=== PATIENT | male | born 1965 | race Caucasian/White ===

== ENCOUNTER → 2023-10-07 16:14 | Outpatient (REF) | payer BC, SELFPAY | LOC: HWRAD 16:14 | PROVIDERS: ATTENDING PHYSICIAN Family Medicine | DX: R05.3 Chronic cough (principal); R06.2 Wheezing | CPT/HCPCS: 71046 ==

== ENCOUNTER 2024-06-05 14:00 | Inpatient (IN) | payer BC, SELFPAY ==
[2024-06-05] VITALS (11 sets, daily range): BP systolic 98–160; BP diastolic 64–89; BMI 34.3; BMI 33.6
[2024-06-05] MEDS: NSS 1000 IV ×2 (11:36→16:20)
[2024-06-05] MEDS: ZOFRAN 4 MG IV ×3 (11:39→21:04)
--- NOTE | 2024-06-05 11:40 | ED.GENMED ---
History of Present Illness
General
Chief Complaint: Abdominal Pain
Source: patient
Exam Limitations: none
Time Seen by Provider: 06/05/24 11:21
History of Present Illness
History of Present Illness:
58yoM with a history of hypertension, hyperlipidemia, GERD, and obesity presenting via EMS for evaluation of abdominal pain. Symptoms initially woke him up from sleep at 3am. He thought he may be hungry so went to get [employer] before work. He
states 'everything went down hill from there.' He reports central abdominal pain that is describes as cramping. Pain comes in waves and is currently a 3/10 in severity. Pain is an 8/10 at its worst. He also reports lightheadedness. He is also having
nausea and was dry heaving in triage. He reportedly had a syncopal episode while dry heaving in triage. He denies any chest pain, shortness of breath, dysuria, constipation, diarrhea, fevers. Previous abdominal surgeries include an umbilical hernia
repair and prostatectomy.
Phy Exam
Physical Exam
Physical Exam:
Appears uncomfortable, non-toxic
General Physical Exam
General age: appears stated age
General Skin: warm and dry
General Habitus: normal
General Mental: alert
ENT Exam
ENT Exam: normocephalic
Cardiovascular Exam
Cardiovascular Exam: regular rate/rhythm and no murmur
Pulmonary Exam
Pulmonary Exam: lungs clear, no respiratory distress, no rales, no crackles, no rhonchi and no wheezing
Gastrointestinal Exam
Gastrointestinal Exam: soft, distended, rebound, tender and other (Abdomen distended with generalized tenderness. +Rebound.)
Neurological Exam
Neurological Exam: alert
Pablo Coma Scale
Eye Opening: Spontaneous
Verbal Response: Oriented
Motor Response: Obeys Commands
GCS Total Score: 15
Skin Exam
Skin Exam: normal color and warm/dry
Psychiatric Exam
Psychiatric Exam: normal mood/affect
Course
Orders/Labs/Results
Orders:
Orders
06/05/24 11:31
Electrocardiogram (*1) Urgent
Reason for Study: Abdominal Pain
Cardiac Monitoring- Treatment ONCE
EKG- Treatment ONCE
0.9% Sodium Chloride 1000 ml [Nss] 1,000 ml IV BOLUS
Ondansetron Injectable [Zofran] 4 mg IV NOW STA
06/05/24 11:32
CT Abd/pelvis W Iv Cont Urgent
Comment:
Reason For Exam: Generalized abd pain
06/05/24 11:36
Complete Blood Count/With Diff Urgent
Comprehensive Metabolic Panel Urgent
Lactate Level [Lactic Acid] Urgent
Lipase Urgent
Troponin I Urgent
06/05/24 13:06
Consult Surgery [SURGICAL CONSULT] Urgent
Consulting Provider: Aquilino Cornejo
Was physician already notified: Yes
NG Tube [GI tube insertion- Treatment] ONCE
06/05/24 13:23
Admit/Transfer Patient As Directed
Co-Sign Provider:
Level of Care: Inpatient admission
Assign to:: Medical/Surgical
Physician / Group: swathi simeon
Diagnosis: small bowel obstruction
Reason for Hospitalization: small bowel obstruction
Expected length of stay greater than two midnights?: Yes
ELOS- Estimated Length of Stay in days: 3
I certify the patient meets the requirements for IP care: Yes
06/05/24 13:24
Code Status As Directed
Resuscitation Status: Full Code
PRN Pain Medication Management As Directed
May give lesser potent ordered pain med per pt: Yes
preference::
Protocol:: Medication orders for pain may be administered in a
manner that supports deferring to patient preference
when the pt is:
- Requesting an ordered lesser potent pain medication.
Least to most potent pain medications are defined
as: acetaminophen < NSAID < tramadol < opioids
(morphine, oxycodone, hydromorphone).
- Requesting a lesser dose of the same medication IF
ORDERED.
- Requesting a less intrusive route of administration
if both routes are prescribed by the provider (PO <
IV).
06/05/24 13:45
Urinalysis Reflex To Culture Routine
06/05/24 13:46
Gastrointestinal Tubes As Directed
Type: [place] sump
To suction?: Yes
Type of suction: Low intermittent
Directions to clamp NG tube: clamp for ambulation <30min
Irrigate tube?: Yes
Irrigant: Tap Water
Frequency: Q4H
Amount in mls: 30
Irrigation Directions: Irrigate Q4H and PRN
Comment: 16fr [place] sump
06/06/24 06:00
CR Abdomen - 1 View IN AM
Comment:
Reason For Exam: f/u CT, SBO with n/abd pain
Abnormal Lab Results
06/05/24
11:36
WBC 19.6 H 10^3/uL
(4.8-10.8)
Abs Immat Gran (auto) 0.1 H 10^3/uL
(0-0.05)
Absolute Neuts (auto) 16.9 H 10^3/uL
(1.4-6.5)
Absolute Monos (auto) 1.2 H 10^3/uL
(0.1-0.6)
Immature Gran % 0.6 H %
(0-0.5)
Neutrophils % 86.0 H %
(42.2-75.2)
Lymphocytes % 6.6 L %
(20.5-51.1)
Chloride 97 L mmol/L
(98-107)
Glucose 151 H mg/dl
(70-99)
Calcium 10.6 H mg/dl
(8.4-10.2)
Total Protein 8.3 H g/dl
(6.3-8.2)
Albumin 5.3 H g/dl
(3.5-5.0)
06/05/24 11:36
06/05/24 11:36
Vital Signs
Initial and Last Documented VS:
Initial Vital Signs
Temp Pulse Resp Pulse Ox
98.0 F 77 18 96
06/05/24 11:14 06/05/24 11:14 06/05/24 11:14 06/05/24 11:14
Last Documented Vital Signs
Temp Pulse Resp BP Pulse Ox
98.0 F 83 33 120/68 95
06/05/24 11:14 06/05/24 12:00 06/05/24 12:00 06/05/24 12:00 06/05/24 12:00
MDM/Problems Addressed
Differential Diagnosis Includes:
58yoM here with abd pain that started at 3am this morning. +Nausea, dry heaving. Syncopal episode in triage after dry heaving. VSS. He appears uncomfortable but is non-toxic. Abdomen is distended with rebound tenderness. Differential diagnosis
includes but is not limited to: gastroenteritis, appendicitis, diverticulitis, SBO, perforated viscous
Initial ED plan: Check abdominal labs, lactate, troponin/EKG, and CT abdomen. IV Zofran and fluid bolus for symptoms.
*EKG
Interpreted by ED Provider?: Yes
EKG Intrepretation Date: 06/05/24
Heart Rate: 80
Rate: normal
Rhythm: sinus
[place]: normal axis
Interval: normal interval
QRS Pattern: normal QRS
Ischemia: no ischemia
*Critical Care Note
Total Time (30-74mins, 75-104mins- exclusive of procedures): Not Applicable
Update Note
Update Note:
CT shows a distal small bowel obstruction with transition point in the right lower quadrant. Leukocytosis noted with a white count of 19 which is likely reactive. Lactate within normal limits. EKG shows normal sinus rhythm without ischemic
changes and troponin normal. Case was discussed with general surgery who recommends NG tube and hospitalist admission. Patient admitted for further management.
ED Attending Note
-
Portions of this chart may have been created with voice recognition software.� Occasional wrong word or��sound alike� substitutions may have occurred due to the inherent limitations of voice recognition software.
Discharge Plan
Departure
Patient Disposition: Admit
Date of Disposition: 06/05/24
Time of Disposition: 13:15
Presentation/result/management discussed w/ accepting MD/DO: Hospitalist
Discharge Problem:
Small bowel obstruction
Interventions
Interventions:
*Risk Screen - Suicide Last Done: 06/05/24 11:14
*General Assessment Last Done: 06/05/24 11:14
*Neglect/Abuse Screening Last Done: 06/05/24 11:14
ML-Qlurcz-Oqzzbrdext Assessment Last Done: 06/05/24 12:06
[2024-06-05 11:49] LABS: % Basophils 0.3 % (0-2); % Eosinophils 0.2 % (0-6); % Immature Granulocytes 0.6 % (0-0.5); % Lymphocytes 6.6 % (20.5-51.1); % Monocytes 6.3 % (1.7-9.3); Absolute Basophils 0.1 10^3/uL (0-0.2); Absolute Immature Granulocytes 0.1 10^3/uL (0-0.05); Absolute Lymphocytes 1.3 10^3/uL (1.2-3.4); Absolute Monocytes 1.2 10^3/uL (0.1-0.6); Absolute Neutrophils 16.9 10^3/uL (1.4-6.5); Hematocrit 45.7 % (39.0-52.0); Hemoglobin 15.9 g/dL (13.0-18.0); Mean Corp Hgb Conc. 34.8 g/dL (33.0-37.0); Mean Corpuscular Hgb 30.3 pg (27.0-31.0); Mean Corpuscular Volume 87.2 fL (80.0-94.0); Mean Platelet Volume 9.1 fL (7.4-10.4); Nucleated Red Blood Cells % 0 % (-); Platelet Count 357 10^3/uL (130-400); Red Blood Cell Count 5.24 10^6/uL (4.70-6.10); Red Cell Dist. Width 12.2 % (11.5-14.5); White Blood Cell Count 19.6 10^3/uL (4.8-10.8)
[2024-06-05 11:58] LABS: ALT (SGPT) 28 U/L (0-50); AST (SGOT) 28 U/L (17-59); Albumin 5.3 g/dl (3.5-5.0); Alkaline Phosphatase 53 U/L (38-126); Blood Urea Nitrogen 19 mg/dl (9-20); Calcium 10.6 mg/dl (8.4-10.2); Carbon Dioxide 27 mmol/L (22-30); Chloride 97 mmol/L (98-107); Estimated Creatinine Clearance 96 ml/min; Glucose 151 mg/dl (70-99); Lipase 45 U/L (23-300); Potassium 4.7 mmol/L (3.5-5.1); Sodium 135 mmol/L (135-145); Total Bilirubin 0.6 mg/dl (0.2-1.3); Total Protein 8.3 g/dl (6.3-8.2); eGFR > 60.00
[2024-06-05 12:00] LABS: Lactic Acid 1.7 mmol/L (0.7-2.0)
[2024-06-05 12:09] LABS: Troponin I < 0.012 ng/ml
--- NOTE | 2024-06-05 13:19 | HPS.HSE ---
Family Physician
-
Family Physician: Alexandrea Gallardo
Chief Complaint
-
Abdominal pain
History of Present Illness
58yoM with a history of hypertension, hyperlipidemia, GERD, and obesity presenting via EMS for evaluation of abdominal pain. He has been having this pain for past 6 months intermittently. It subsided by itself by taking rest. symptoms initially
woke him up from sleep at 3am. Patient ate a apple at bedtime, since then he noticed worsening abdominal pain associate with nausea vomiting. Patient had BM as today and he had a small BM today. Patient was very clammy and almost passed out due
to the pain. patient denied any headache, dizziness or syncope. Patient denied fever, chills, chest pain, short of breath. Patient denied dysuria,hematuria.
Medical History
Past Medical History
Past Medical History: Reports Other
Additional Past Medical History:
Left lumbar radiculopathy
Asthma
Prostate cancer
Hyperlipidemia
Alcoholism
Hepatitis C
Past Surgical History: Reports Other
Additional Past Surgical History:
Prostatectomy
Right shoulder surgery
Umbilical hernia repair
Social History
Tobacco: Former Smoker
Alcohol: None
Drug: None
Personal:
Living: With Family
Employment: Employed
Family History
Family History: Not pertinent
Allergies / Home Medications
Allergies reflects when Allergies were last updated in [employer].
Home Medications with original date entered in [employer]
Allergy/Medication List:
Allergies
Allergy/AdvReac Type Severity Reaction Status Date / Time
No Known Allergies Allergy Verified 06/05/24 11:14
Home Medications
ibuprofen 200 mg tablet (Advil) 600 mg PO PRN PRN pain 01/19/14
naproxen sodium 220 mg tablet (Aleve) 660 mg PO PRN PRN pain 01/19/14
cephalexin 500 mg capsule 500 mg PO DAILY #14 caps 02/01/14
oxycodone-acetaminophen 5 mg-325 mg tablet 1 ea PO Q4HPRN PRN pain #30 tabs 02/01/14
Review of Systems
-
Constitutional: Reports No Symptoms
EENT: Reports No Symptoms
Respiratory: Reports No Symptoms
Cardiac: Reports No Symptoms
Abdomen/GI: Reports Abdominal Pain and Nausea
: Reports No Symptoms
Musculoskeletal: Reports No Symptoms
Skin: Reports No Symptoms
Neurological: Reports No Symptoms
Endocrine: Reports No Symptoms
Hematologic/Lymphatic: Reports No Symptoms
Psych: Reports No Symptoms
Physical Exam
Vital Signs
Vital Signs
Temp Pulse Resp BP Pulse Ox
98.0 F 83 33 120/68 95
06/05/24 11:14 06/05/24 12:00 06/05/24 12:00 06/05/24 12:00 06/05/24 12:00
Physical Exam
General: Well Developed, Well Nourished and No Apparent Distress
HEENT: NormoCephalic, Moist mucous membranes and Atraumatic
Respiratory: Clear
Cardiac: S1/S2 and Regular Rhythm; No Murmur or Rub
GI: Soft, Normal Bowel Sounds, Tender and Distended; No Organomegaly
Rectal: Deferred by Provider
Musculoskeletal: No Clubbing, No Cyanosis and No Edema
Skin: No Rash
Neuro: AO x 3 and Nonfocal/grossly intact
Psych: Calm
Laboratory Results
-
06/05/24 11:36
06/05/24 11:36
Laboratory Results
Lactic Acid 1.7 mmol/L (0.7-2.0) 06/05/24 11:36
Total Bilirubin 0.6 mg/dl (0.2-1.3) 06/05/24 11:36
AST 28 U/L (17-59) 06/05/24 11:36
ALT 28 U/L (0-50) 06/05/24 11:36
Alkaline Phosphatase 53 U/L (38-126) 06/05/24 11:36
Troponin I < 0.012 ng/ml 06/05/24 11:36
Lipase 45 U/L (23-300) 06/05/24 11:36
Data Reviewed
-
CT Scan: Report Reviewed by me
Lab Data: Labs Reviewed by me
Impression/Plan
-
# Small bowel obstruction
-NG tube
-Strict n.p.o.
-Fluid for hydration
-IV Dilaudid as needed for pain
-Zofran as needed for nausea vomiting
-Surgery consulted
-CT abdomen pelvis with impression of Distal small bowel obstruction with transition point in the right lower quadrant, possibly secondary to adhesions.
# Leukocytosis likely stress reaction
-WBC 19.6
-obtain UA
-patient is afebrile
#HTN
-on antihypertensive at home
#HLD
-on statin
#GERD
-IV PPI
#DVT prophylaxis
-scd
#CODE status
-full code
--- NOTE | 2024-06-05 13:32 | W.PN.UPDATE ---
Addendum entered and electronically signed by Pedro Bob MD 06/05/24 13:58:
As per GS discussion
- NGT placement for decompression
- Observe with conservative medical approach
- cont. NPO/IVF/ PRN narcotic analgesia / PRN anti emetics
- daily BMP
Original Note:
Update Note
Progress Note Update
This note serves as an addendum to the H&P by switch box installer KRYS Mlie YU
HPI
58M [facility] , Obese , HX prior abdominal surgeries include an umbilical hernia repair and prostatectomy, HX HTN, HLD, GERD, and obesity seen at ER for evaluation of abdominal pain.
- Abdominal pain woke him up from sleep at 3am.
- He ate [employer] before work and 'everything went down hill from there.
- associated with colicky central abdominal pain - currently a 3/10 in severity, 8/10 at its worst.
- reports lightheadedness.
- nausea and was dry heaving in triage.
- He reportedly had a syncopal episode while dry heaving in triage.
ROS
He denies any chest pain, shortness of breath, dysuria, constipation, diarrhea, fevers.
PHX: see above
Vital Signs
Temp Pulse Resp BP Pulse Ox
98.0 F 83 33 120/68 95
06/05/24 11:14 06/05/24 12:00 06/05/24 12:00 06/05/24 12:00 06/05/24 12:00
PE
Gen: Class I obesity , NAD, not toxic
HEENT: anicteric
Neck: supple
Lungs: CTA
Cor: RRR S1S2
Abdomen: Abdomen distended with generalized tenderness. +Rebound
AUTO MECHANIC: AAO3, symmetric movements in all limbs
MS: no edema
Psych: normal mood and affect
Data
06/05/24
11:36
WBC 19.6 H
Chloride 97 L
Creatinine 1.1
eGFR > 60.00
Troponin I < 0.012
Albumin 5.3 H
EKG
NORMAL SINUS RHYTHM
NORMAL ECG
WHEN COMPARED WITH ECG OF 09-JUL-2022 09:51,
NO SIGNIFICANT CHANGE WAS FOUND
06/05/24 CT AP W Iv Cont
Distal small bowel obstruction with transition point in the right lower quadrant, possibly secondary to adhesions.
No prior hospitalist admission
ASSESSMENT & PLAN
Distal SBO with transition point in the right lower quadrant, possibly secondary to adhesions: First episode
HX prior abdominal surgeries include an umbilical hernia repair and prostatectomy
Nausea and was dry heaving
- if persistent emesis , NGT for decompression is indicated
- NPO, IVF and antiemetics
- PRN Narcotic analgesia
- GS consulted
Essential HTN
HLD
GERD
- Pending Rx reconciliation
DVT PPX; SCD
Full code
IP TLM
--- NOTE | 2024-06-05 13:47 | CON.GS ---
Addendum entered and electronically signed by Aquilino Cornejo MD 06/05/24 14:07:
Patient seen and examined. Agree with assessment plan as documented below.
Patient is a 58 yo M with a PMH of obesity, HLD, hepatitis C s/p medical treatment, prostate cancer s/p robotic prostatectomy, and s/p open umbilical hernia repair with mesh who presents to the ER with 12 hours of worsening abdominal pain, nausea,
vomiting. Mr. Murphy states that over the past several months he has had intermittent episodes of abdominal discomfort. The symptoms would occur after eating large heavy meals. Symptoms would last a few hours before resolving. His current
episode began after eating some apples. Abdominal pain was worse than previous episodes and did not resolve. Associated nausea and vomiting. Last flatus and BM was yesterday. No fevers or chills.
Gen: NAD
Abd: soft, obese, mild tenderness, distended, tympanitic, non-peritoneal, prior incisions well healed
Labs and CT scan imaging reviewed
Patient is a 58 yo M p/w SBO likely secondary to adhesions
Natural history and pathophysiology of bowel obstructions was discussed. CT scan imaging as a relates to his bowels was reviewed. No evidence of bowel compromise either radiographically (no pneumatosis, bowel wall thickening, or free air) or
clinically (no peritonitis). Role of surgical intervention was reviewed. Recommend medical management with bowel rest and NGT decompression. Repeat abdominal X-ray in the AM. All questions answered.
-- NGT decompression given transition point and degree of gastric distension
-- NPO, IVF
-- Correct lytes, minimize narcotics
-- Repeat X-ray in AM
-- NPO, IVF
Original Note:
Consultation
-
Date/Time Consultation Requested: 06/05/24 1308
Requesting Provider: Becky
Reason for Consultation: sbo
Medical History
-
Chief Complaint: abdominal pain
History of Present Illness:
Mr Murphy is a 58 yo male with a h/o umbilical hernia repair at [facility] and prostate ca tx with RALP who presents with abdominal pain predominantly on the right and nausea with sensation of blacking out and feeling clammy when he feels the need
to vomit. He notes acute onset of symptoms around 2 or 3am. He has had intermittent episodes similar to this over the past 6 months but not as severe and usually after eating large meals. He recently bought a lot of fruit in an effor to eat
healthier and after a large meal last night, did have apples as well. This morning, he was able to pass a very small BM with some flatus but none since. He has been nauseated all day with lower abdominal pain and distention. On exam, he is tender
to the lower right abdomen with distention noted.
Past Medical History
Past Medical History: Cancer (prostate), Hypercholesterolemia and Other (obesity, lumbar radiculopathy, hepatitis C successfully treated with interferon and ribavirin)
Past Surgical History: Hernia Repair (umbilical with mesh (years prior to prostatectomy)), Orthopedic (right shoulder) and Urological (RALP)
Social History
Tobacco: Former Smoker
Personal:
Living: With Family
Employment: Employed ([employer])
Family History
Family History: Reviewed & Not Pertinent
Allergies / Home Medications
Allergy/AdvReac Type Severity Reaction Status Date / Time
No Known Allergies Allergy Verified 06/05/24 11:14
�Medication �Instructions �Recorded �Confirmed �Type
ibuprofen 200 mg tablet (Advil) 600 mg PO PRN PRN pain 01/19/14 02/01/14 History
naproxen sodium 220 mg tablet 660 mg PO PRN PRN pain 01/19/14 02/01/14 History
(Aleve)
cephalexin 500 mg capsule 500 mg PO DAILY #14 caps 02/01/14 Rx
oxycodone-acetaminophen 5 mg-325 1 ea PO Q4HPRN PRN pain #30 tabs 02/01/14 Rx
mg tablet
Review of Systems
-
History Source: Patient and Family
All other systems: Negative unless noted
A 10 point review of systems was completed, and was negative except as per HPI.
Physical Exam
Vital Signs
Temp Pulse Resp BP Pulse Ox
98.0 F 83 33 120/68 95
06/05/24 11:14 06/05/24 12:00 06/05/24 12:00 06/05/24 12:00 06/05/24 12:00
06/04/24 06/05/24 06/06/24
06:59 06:59 06:59
Actual Weight 118 kg
Body Mass Index (BMI) 34.3
Lab Results
06/05/24 11:36
06/05/24 11:36
WBC 19.6 10^3/uL (4.8-10.8) H 06/05/24 11:36
Hgb 15.9 g/dL (13.0-18.0) 06/05/24 11:36
Hct 45.7 % (39.0-52.0) 06/05/24 11:36
Plt Count 357 10^3/uL (130-400) 06/05/24 11:36
Abs Immat Gran (auto) 0.1 10^3/uL (0-0.05) H 06/05/24 11:36
Neutrophils % 86.0 % (42.2-75.2) H 06/05/24 11:36
Physical Exam
General: Well Developed and Well Nourished
HEENT: Moist Mucous Membranes
Respiratory: Non Labored Respirations
GI: Soft, Tender (Right lower abd), Distended and Obese
Skin: Warm and Dry
Neuro: Awake, Alert and AO x 3
Psych: Calm
Data Reviewed
-
CT Scan: Image Personally Visualized and interpreted, Report Reviewed by me, Discussed with Physician, Discussed with Patient and Discussed with Family
Labs: Labs Reviewed by me, Discussed with Physician, Discussed with Patient and Discussed with Family
Assessment / Plan
-
58 yo male with a psh of RALP and Umbilical hernia repair with mesh and 6 month history of intermittent nausea with abdominal pain after large meal who presents with nausea with vagal response with vomiting, abdominal pain predominantly on the right
side and distention. CT imaging consistent with a SBO with a transition point in the RLQ which likely secondary to adhesions in combination with dietary indiscretion. There is no pneumatosis or indications of bowel threat/compromise. AFVSS.
Leukocytosis present.
No plan for emergent surgery, will follow with bowel/rest decompression for improvement at this time
--NPO
--Place NGT to LIWS for decompression
--Analgesics/antiemetics
--XR in AM
--Medical management as per hospitalist team. Discussed case with team at bedside/in ED
[2024-06-05] MEDS: PROTONIX IV 40 MG IV (14:29)
[2024-06-05] MEDS: DILAUDID 1 MG IV ×2 (14:30→21:05)
[2024-06-05] MEDS: NSS (PRESERVATIVE FREE) IV (16:03)
--- NOTE | 2024-06-05 16:32 | PTCARENOTE ---
Received patient from ED via stretcher. Pt AAOX3. Pox: 97% RA. Family at bedside. IVFs infusing without difficulty. Call marrufo within reach. Plan of care ongoing.
[2024-06-05 21:54] LABS: Urine Bilirubin Negative (Negative); Urine Character Clear (Clear); Urine Nitrite Negative (Negative)
[2024-06-05 22:35] LABS: Urine Specific Gravity 1.025 (<1.030)
[2024-06-05 22:36] LABS: Urine Albumin Trace (Neg - Trace); Urine Glucose Negative (Negative); Urine Ketone 1+ (Negative); Urine Leukocyte Negative (Negative); Urine Occult Blood Negative (Negative); Urine Urobilinogen Negative (Neg - 1+)
[2024-06-05 22:38] LABS: Urine Mucus Few; Urine Red Blood Cell 0-2 /HPF (0-2); Urine White Cell 0-2 /HPF (0-5)
[2024-06-05 22:41] LABS: Urine Color Yellow
[2024-06-06] MEDS: NSS (PRESERVATIVE FREE) 8 ML IV (00:39)
[2024-06-06] MEDS: PEPCID 20 MG IV (00:40)
[2024-06-06] MEDS: DILAUDID 1 MG IV (01:24)
[2024-06-06] MEDS: NSS 1000 IV ×2 (05:26→18:24)
[2024-06-06] MEDS: ZOFRAN 4 MG IV (05:27)
[2024-06-06 08:00] VITALS: BP 170/94
--- NOTE | 2024-06-06 08:20 | W.PN.HOSP.TC ---
Today's Communication/Plan
-
continue conservative management pending AXR today. GS following
Assessment / Plan
Assessment / Plan
Assessment:
Small bowel obstruction, likely related to adhesional disease
- Distal small bowel obstruction with transition point in the right lower quadrant, possibly secondary to adhesions.
- continue NPO/IVF
- continue NG tube
- IV Tylenol for pain control
- limit Dilaudid
- anti-emetics
- GS following
- repeat AXR today
Leukocytosis, suspected stress reaction
- trend WBC, fever curve
- UA clear
Essential HTN
- hold ARB
- prn Hydralazine
HLD - holding statin
GERD - IV PPI
DVT ppx: SCDs
Code: Full
Anticipated Discharge: > 48 hours
Subjective/Interval History
-
Date of Service: June 06, 2024
450 recorded from NG
passing flatus, no BM
feels less cramping, but RLQ pain is stable in severity (moderate)
no fever/chills
Objective Data
-
Labs:
Laboratory Results
06/06/24
08:18
WBC Pending
Hgb Pending
Hct Pending
Plt Count Pending
Sodium Pending
Potassium Pending
Chloride Pending
Carbon Dioxide Pending
BUN Pending
Creatinine Pending
Glucose Pending
Calcium Pending
Vital Signs:
Vital Signs
Temp Pulse Resp BP Pulse Ox
98.3 F 93 18 170/94 95
06/06/24 08:00 06/06/24 08:00 06/06/24 08:00 06/06/24 08:00 06/06/24 08:00
I&O
06/05/24 06/06/2406/07/24
06:59 06:59 06:59
Intake Total 90 / 90
Output Total 450 / 450
Balance -360 / -360
Physical Exam
-
General: No Apparent Distress
HEENT: Normocephalic, Atraumatic and Other (+NGT)
Respiratory: Negative Wheezes
Cardiac: Regular Rhythm and S1/S2
GI: Tender (RLQ) and Distended
Genito-urinary: No Costovertebral Tender
Musculoskeletal: No Edema
Neuro: AO x 3
Hematologic / Lymphatic: No Lymphadenopathy
Psych: Calm
Data Reviewed
-
Total Time Spent with Patient (in minutes): 47
Labs: Labs Reviewed by me
[2024-06-06 08:52] LABS: Hematocrit 40.7 % (39.0-52.0); Hemoglobin 13.7 g/dL (13.0-18.0); Mean Corp Hgb Conc. 33.7 g/dL (33.0-37.0); Mean Corpuscular Hgb 29.8 pg (27.0-31.0); Mean Corpuscular Volume 88.5 fL (80.0-94.0); Mean Platelet Volume 9.1 fL (7.4-10.4); Platelet Count 285 10^3/uL (130-400); Red Cell Dist. Width 12.5 % (11.5-14.5); White Blood Cell Count 11.8 10^3/uL (4.8-10.8)
[2024-06-06] MEDS: NSS (PRESERVATIVE FREE) 10 ML IV (09:07)
[2024-06-06] MEDS: PROTONIX IV 40 MG IV (09:07)
[2024-06-06] MEDS: OFIRMEV 100 IV ×2 (09:12→14:30)
[2024-06-06 09:14] LABS: Blood Urea Nitrogen 17 mg/dl (9-20); Calcium 8.8 mg/dl (8.4-10.2); Carbon Dioxide 27 mmol/L (22-30); Chloride 102 mmol/L (98-107); Estimated Creatinine Clearance 116 ml/min; Glucose 112 mg/dl (70-99); Potassium 4.3 mmol/L (3.5-5.1); Sodium 136 mmol/L (135-145); eGFR > 60.00
[2024-06-06] MEDS: HURRICAINE SPRAY 1 APPLIC TOPICAL ×2 (09:18→15:18)
--- NOTE | 2024-06-06 10:00 | W.PN.UPDATE ---
Update Note
Progress Note Update
Attempted to see pt. Off floor for XR.
--- NOTE | 2024-06-06 10:36 | W.PN.GS2 ---
Today's Communication / Plan
-
clampo trial --> cld --> poss DC home with diet advancement independently at home
Assessment / Plan
-
58M with resolving pSBO
AFVSS, passing flatus, pain improved
Labs OK
KUB today with some mildly persistently dilated sb loops, air in colon
Plan:
NGT clamp trial
OK for CLD if passes
Given today is a holiday, I offered the pt DC home later if cld goes well. Advise to go to full liqs tonight and soft foods (low res tomorrow).
If any issues, would keep inpt for obs and diet advancement
Subjective Data
-
Date of Service: June 06, 2024
Reports pain improved, denies n/v, passing flatus
Objective Data
-
Intake and Output
06/05/24 06/06/24 06/07/24
06:59 06:59 06:59
Intake Total 90 / 90
Output Total 450 / 450
Balance -360 / -360
Intake:
Amount instilled into GI Tube ( 90 / 90
Total)
[place] Sump 90 / 90
Output:
Gastrointestinal tube output ( 450 / 450
Total)
[place] Sump 450 / 450
Vital Signs
Temp Pulse Resp BP Pulse Ox
98.3 F 93 18 170/94 95
06/06/24 08:00 06/06/24 08:00 06/06/24 08:00 06/06/24 08:00 06/06/24 08:00
Lab Results
06/06/24 08:18
06/06/24 08:18
Calcium 8.8 mg/dl (8.4-10.2) D 06/06/24 08:18
Total Bilirubin 0.6 mg/dl (0.2-1.3) 06/05/24 11:36
AST 28 U/L (17-59) 06/05/24 11:36
ALT 28 U/L (0-50) 06/05/24 11:36
Alkaline Phosphatase 53 U/L (38-126) 06/05/24 11:36
Total Protein 8.3 g/dl (6.3-8.2) H 06/05/24 11:36
Albumin 5.3 g/dl (3.5-5.0) H 06/05/24 11:36
Physical Exam
-
Gen: NAd
Abd: soft, mild distention, nt
--- NOTE | 2024-06-06 14:21 | PTCARENOTE ---
Patient with clamped NGT since this morning after his xray. Patient denies nausea. No vomiting. No abdominal discomfort. Residual less than 15 mls. NGT tube pulled at 1400. Clear liquid diet ordered as per MD team. Patient tolerating well.
[2024-06-06 15:58] VITALS: BP 143/91
[2024-06-06 23:00] VITALS: BP 124/73
[2024-06-07] MEDS: PROTONIX IV 40 MG IV (07:32)
[2024-06-07] MEDS: NSS (PRESERVATIVE FREE) 10 ML IV (07:32)
[2024-06-07] MEDS: NSS IV (07:33)
[2024-06-07] MEDS: HURRICAINE SPRAY 1 APPLIC TOPICAL (07:43)
[2024-06-07 08:11] VITALS: BP 151/91
[2024-06-07 08:36] LABS: Hematocrit 38.5 % (39.0-52.0); Hemoglobin 12.7 g/dL (13.0-18.0); Mean Corpuscular Hgb 29.5 pg (27.0-31.0); Mean Corpuscular Volume 89.5 fL (80.0-94.0); Platelet Count 251 10^3/uL (130-400); Red Cell Dist. Width 12.5 % (11.5-14.5); White Blood Cell Count 7.9 10^3/uL (4.8-10.8)
[2024-06-07 08:53] LABS: Blood Urea Nitrogen 12 mg/dl (9-20); Calcium 8.6 mg/dl (8.4-10.2); Carbon Dioxide 27 mmol/L (22-30); Chloride 101 mmol/L (98-107); Estimated Creatinine Clearance 116 ml/min; Glucose 89 mg/dl (70-99); Potassium 4.1 mmol/L (3.5-5.1); Sodium 136 mmol/L (135-145); eGFR > 60.00
--- NOTE | 2024-06-07 10:13 | PTCARENOTE ---
Patient ate low residue diet for breakfast. Tolerated well without complaint. Denies nausea, or any abdominal discomfort. No vomiting. BM this morning as per patient. MD aware.
--- NOTE | 2024-06-07 11:34 | PTCARENOTE ---
Peripheral IVs removed. Awaiting discharge.
--- NOTE | 2024-06-07 11:58 | W.PN.HOSP.TC ---
Today's Communication/Plan
-
dc to home today
Assessment / Plan
Assessment / Plan
Assessment:
Small bowel obstruction, likely related to adhesional disease
- Distal small bowel obstruction with transition point in the right lower quadrant, possibly secondary to adhesions.
- improved, tolerating LRD
Leukocytosis, suspected stress reaction
- resolved
Essential HTN
- resume ARB
- prn Hydralazine
HLD - holding statin
GERD - resume PPI
DVT ppx: SCDs
Code: Full
More than 30 minutes spent in discharge including
Final examination of the patient
Summarizing hospital stay
Instructions for continuing care to all relevant caregivers
Preparation of discharge records, prescriptions, and referral forms
Total time spent (in minutes): 41
Anticipated Discharge: Today
Subjective/Interval History
-
Date of Service: June 07, 2024
tolerating LRD
no complaints
Objective Data
-
Labs:
Laboratory Results
06/07/24
07:17
WBC 7.9
Hgb 12.7 L
Hct 38.5 L
Plt Count 251
Sodium 136
Potassium 4.1
Chloride 101
Carbon Dioxide 27
BUN 12
Creatinine 0.9
Glucose 89
Calcium 8.6
Vital Signs:
Vital Signs
Temp Pulse Resp BP Pulse Ox
97.7 F 81 18 151/91 97
06/07/24 08:11 06/07/24 08:11 06/07/24 08:11 06/07/24 08:11 06/07/24 10:21
I&O
06/06/24 06/07/24 06/08/24
06:59 06:59 06:59
Intake Total 90 / 90 4030 / 4030
Output Total 450 / 450 2110 / 2110
Balance -360 / -360 1919
Physical Exam
-
General: No Apparent Distress
HEENT: Normocephalic and Atraumatic
Respiratory: Negative Wheezes
Cardiac: Regular Rhythm and S1/S2
GI: Soft and Nontender
Genito-urinary: No Costovertebral Tender
Musculoskeletal: No Edema
Neuro: AO x 3
Hematologic / Lymphatic: No Lymphadenopathy
Psych: Calm
Data Reviewed
-
Total Time Spent with Patient (in minutes): 45
Labs: Labs Reviewed by me
[2024-06-07 12:00] VITALS: BP 130/70
--- NOTE | 2024-06-07 12:03 | W.DS.TRANS ---
DC Summary - [employer]
-
Discharge Instructions:
Discharge Diagnosis/Procedures small bowel obstruction
Diet Low Residue
Activity As tolerated
Bathing Restrictions None
Instructions:
Stand-Alone Forms:
Changes to Home Medications: No
Discharge Medications:
DC Medications w/original date entered in [facility]
naproxen sodium 220 mg tablet (Aleve) 220 mg PO BIDPRN PRN MILD PAIN 06/05/24
olmesartan 20 mg tablet (Benicar) 20 mg PO DAILY Blood Pressure 06/05/24
omeprazole 40 mg capsule,delayed release 40 mg PO DAILY Gastrointestinal Issue 06/05/24
rosuvastatin 10 mg tablet (Crestor) 10 mg PO DAILY High Cholesterol 06/05/24
Home Medication Changes
Pending Results: No
Total time spent discharging patient (in min): 41
--- NOTE | 2024-06-07 12:43 | CM ---
Met with patient at bedside; initial assessment completed
Pharmacy verified: [facility] @ [address] [place] [address]
Patient lives with his in a one floor home; 2 steps to enter; bath has tub w/ shower
PLOF: independent with ambulation, steps, and ADLs; drives; works truck service technician
NO DME'
NO SNF or Home Health utilization
will transport home
Plan: discharge to home; no needs
== END 2024-06-07 14:38 | disposition home or self-care (01) | DRG 390 ==
LOC: 4 EAST ACU 14:00
PROVIDERS: Physician Assistant; Registered Nurse; ADMITTING PHYSICIAN Internal Medicine; ATTENDING PHYSICIAN Internal Medicine; CONSULT PHYSICIAN Surgery; EMERGENCY PHYSICIAN Emergency Medicine; FAMILY PHYSICIAN Nurse Practitioner Family
DX: K56.50 Intestinal adhesions [bands], unspecified as to partial versus complete obstruction (principal); K21.9 Gastro-esophageal reflux disease without esophagitis; I10 Essential (primary) hypertension; E78.00 Pure hypercholesterolemia, unspecified; J45.909 Unspecified asthma, uncomplicated; B19.20 Unspecified viral hepatitis C without hepatic coma; M54.16 Radiculopathy, lumbar region; E66.811 Obesity, class 1; Z85.46 Personal history of malignant neoplasm of prostate; Z87.891 Personal history of nicotine dependence; Z68.34 Body mass index [BMI] 34.0-34.9, adult
CPT/HCPCS: 43752; 74018; 74177; 80048; 80053; 81003; 81015; 83605; 83690; 84484; 85025; 85027; 93005; 96361; 96374; 99285; Q9967

== ENCOUNTER → 2024-09-19 06:09 | Outpatient (REF) | payer BC, SELFPAY ==
[2024-09-19 10:07] LABS: ALT (SGPT) 20 U/L (0-50); AST (SGOT) 21 U/L (17-59); Albumin 4.1 g/dl (3.5-5.0); Alkaline Phosphatase 50 U/L (38-126); Blood Urea Nitrogen 20 mg/dl (9-20); Calcium 9.6 mg/dl (8.4-10.2); Carbon Dioxide 29 mmol/L (22-30); Chloride 105 mmol/L (98-107); Glucose 117 mg/dl (70-99); HDL Cholesterol 50 mg/dl; LDL Cholesterol, Calculated 58 mg/dl; Potassium 4.5 mmol/L (3.5-5.1); Sodium 140 mmol/L (135-145); Total Bilirubin 0.5 mg/dl (0.2-1.3); Total Cholesterol 126 mg/dl (50-199); Total Protein 6.9 g/dl (6.3-8.2); Triglyceride 94 mg/dl (10-149); Very Low Density Lipoprotein 18 mg/dl (0-30); eGFR > 60.00
[2024-09-19 10:31] LABS: PSA, Total - Diagnostic < 0.06 ng/ml (0.0-4.0)
[2024-09-19 11:12] LABS: Glycohemoglobin (HgbA1c) 5.3 % (4.0-5.6)
== END ==
LOC: HWLAB 06:09
PROVIDERS: ATTENDING PHYSICIAN Nurse Practitioner Family
DX: I10 Essential (primary) hypertension (principal); E78.2 Mixed hyperlipidemia; Z83.3 Family history of diabetes mellitus; Z85.46 Personal history of malignant neoplasm of prostate
CPT/HCPCS: 36415; 80053; 80061; 83036; 84153

== ENCOUNTER → 2024-10-12 16:27 | Outpatient (REF) | payer BC, SELFPAY | LOC: RAD 16:27 | PROVIDERS: ATTENDING PHYSICIAN Physician Assistant | DX: Z87.19 Personal history of other diseases of the digestive system (principal); R14.0 Abdominal distension (gaseous); R19.8 Other specified symptoms and signs involving the digestive system and abdomen | CPT/HCPCS: 74177; Q9967 ==